=== PATIENT | male | born 1975 | race Caucasian/White ===

== ENCOUNTER 2016-12-08 16:28 | Emergency (ER) | payer BC, MEDICAID ==
[2016-12-08] MEDS ORDERED: Sodium Chloride 0.9% 10 ML Syringe FLUSH PRN (16:42)
[2016-12-08] MEDS ORDERED: Aspirin 81 MG Tab.Chew PO ONE (16:42)
[2016-12-08] MEDS ORDERED: Sodium Chloride 0.9% 2.5 ML Syringe FLUSH PRN (16:42)
--- NOTE | 2016-12-08 16:46 | EDM.PDOC ---
ED HPI GENERAL MEDICAL PROBLEM - General Stated Complaint: CHEST PAIN Time Seen by Provider: 12/08/16 16:29 - History of Present Illness INITIAL COMMENTS - FREE TEXT/NARRATIVE: HISTORY AND PHYSICAL: History of present illness: The patient is a 41-year-old male with no stated cardiac or pulmonary history and does not have a local provider and presents with an episode of chest pain that woke him from sleep at 2:53 AM. The patient states he had a normal day yesterday and ate normally and went to sleep and was sleeping comfortably until he woke with sudden onset of left upper chest pain that did not radiate which he rated as a 10/10. The pain lasted approximately 1 hour and then completely dissipated and it has not returned since. The patient states he took Tylenol. The patient states that the pain was not radiating it was not associated with diaphoresis nausea vomiting or abdominal pain. The patient says he has a history of asthma which is very well controlled and when he woke with the pain he thought he was wheezing so he gave himself a nebulizer which also improved his discomfort. The patient states he was never uses any asthma medications but thought he was wheezing which is why he did that neb. The patient has not had cholesterol or lipid profile checked and has never done a stress test but does smoke a pack of cigarettes a day and states he eats a very "poor diet". He has no significant family history for cardiac disease and has no drug use history. The patient's told him to make sure to tell me that he has had episodes similar to this in the middle the night in the past and he says they have occurred approximately every month for the last 2 years but never to this extreme. He has not sought evaluation from it but says he does wake from sleep with the same pain in the same location but not as strong. The patient also has a history of back pain and back surgery in 2013 but does not take any narcotics for that pain and has no complaints of that today. He otherwise denies any upper respiratory symptoms and currently in the ED has no complaints of chest pain shortness of breath abdominal pain. The patient states he only had the pain for approximately 1 hour and the only reason he came in is because one home this afternoon after work took a nap and woke up and remembered what occurred early this morning and thought he should be evaluated. He also states that his work tasks that he come here as well. Has no recent long travel and no leg pain or swelling. 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 The patient also denies any recent trauma to the chest wall area. Review of systems: As per history of present illness and below otherwise all systems reviewed and negative. Past medical history: As per history of present illness and as reviewed below otherwise noncontributory. Surgical history: As per history of present illness and as reviewed below otherwise noncontributory. Social history: No reported history of drug or alcohol abuse. Family history: As per history of present illness and as reviewed below otherwise noncontributory. Physical exam: Gen.: Well-developed well-nourished man who is nontoxic and speaking easily and moving easily in the ED without distress. HEENT: Atraumatic, normocephalic, pupils reactive, negative for conjunctival pallor or scleral icterus, mucous membranes moist, throat clear, neck supple, nontender, trachea midline. Lungs: Clear to auscultation, breath sounds equal bilaterally, chest nontender. Heart: S1S2, regular, negative for clicks, rubs, or JVD. Abdomen: Soft, nondistended, nontender. Negative for masses or hepatosplenomegaly. Negative for costovertebral tenderness. Pelvis: Stable nontender. Genitourinary: Deferred. Rectal: Deferred. Extremities: Atraumatic, negative for cords or calf pain. Neurovascular unremarkable. No pedal edema or leg asymmetry Neuro: Awake, alert, oriented. Cranial nerves II through XII unremarkable. Cerebellum unremarkable. Motor and sensory unremarkable throughout. Exam nonfocal. Diagnostics: EKG chest x-ray CBC CMP d-dimer troponin When EKG was performed in the ED he had no chest pain Therapeutics: Aspirin Patient continues to have no chest pain and stable vitals. I have discussed with him all testing results and have offered 23 hour admission for serial EKG and cardiac enzymes and he has refused. He understands my concerns and the risk involved and his a competent individual and accepts those risks. He also asked me for work release which I will not give him. In light of the fact that the patient wants to get back to work as soon as possible we have organized a clinic follow-up appointment with Dr. Guy in his clinic tomorrow at 2 PM. 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 He understands that he should return if the chest pain returns or if there are any new symptoms and he is accepting of all risks involved with his decision. Impression: Chest pain rule out ACS, atypical chest pain, refusing admission Definitive disposition and diagnosis as appropriate pending reevaluation and review of above. - Related Data Allergies Allergy/AdvReac Type Severity Reaction Status Date / Time No Known Allergies Allergy Verified 12/08/16 16:44 Home Meds: Home Meds Albuterol [Proventil Neb Soln] 2.5 mg NEB DAILY PRN 12/08/16 [History] Past Medical History Respiratory History: Reports: Asthma - Past Surgical History Musculoskeletal Surgical History: Reports: Other (See Below) Social & Family History - Family History Family Medical History: Noncontributory - Tobacco Use Smoking Status *Q: Never Smoker - Recreational Drug Use Recreational Drug Use: No ED ROS GENERAL - Review of Systems Review Of Systems: ROS reveals no pertinent complaints other than HPI. ED EXAM, GENERAL - Physical Exam Exam: See Below (See dictation) Course - Vital Signs Last Recorded V/S: Last Vital Signs Temp 36.6 C 12/08/16 16:47 Pulse 80 12/08/16 16:47 Resp 19 12/08/16 16:47 BP 146/88 H 12/08/16 16:47 Pulse Ox 94 L 12/08/16 16:47 - Orders/Labs/Meds Orders: Active Orders 24 hr Category Date Time Status Cardiac Monitoring [RC] . DIRECTED Care 12/08/16 16:41 Active EKG Documentation Completion [RC] STAT Care 12/08/16 16:41 Active Oxygen Therapy, ED [RC] ASDIRECTED Care 12/08/16 16:41 Active Pulse Oximetry [RC] ASDIRECTED Care 12/08/16 16:41 Active Chest 1V Frontal [CR] Stat Exams 12/08/16 16:41 Taken Sodium Chloride 0.9% [Saline Flush] Med 12/08/16 16:42 Active 10 ml FLUSH ASDIRECTED PRN Sodium Chloride 0.9% [Saline Flush] Med 12/08/16 16:42 Active 2.5 ml FLUSH ASDIRECTED PRN Saline Lock Insert [OM.PC] Stat [facility] 12/08/16 16:41 Ordered Medication Orders Sodium Chloride (Saline Flush) 10 ml FLUSH ASDIRECTED PRN PRN Reason: Keep Vein Open Last Admin: 12/08/16 16:58 Dose: 10 ml Sodium Chloride (Saline Flush) 2.5 ml FLUSH ASDIRECTED PRN PRN Reason: Keep Vein Open Last Admin: 12/08/16 16:56 Dose: 2.5 ml Labs: Laboratory Tests 12/08/16 12/08/16 12/08/16 Range/Units 16:30 16:30 16:30 WBC 6.81 (4.0-11.0) K/uL RBC 4.90 (4.50-5.90) M/uL Hgb 14.8 (13.0-17.0) g/dL Hct 42.7 (38.0-50.0) % MCV 87.1 (80.0-98.0) fL MCH 30.2 (27.0-32.0) pg MCHC 34.7 (31.0-37.0) g/dL RDW Std Deviation 38.8 (28.0-62.0) fl RDW Coeff of Tashi 12 (11.0-15.0) % Plt Count 301 (150-400) K/uL MPV 10.20 (7.40-12.00) fL Neut % (Auto) 48.3 (48.0-80.0) % Lymph % (Auto) 39.8 (16.0-40.0) % [place] % (Auto) 7.9 (0.0-15.0) % Eos % (Auto) 3.4 (0.0-7.0) % Baso % (Auto) 0.6 (0.0-1.5) % Neut # (Auto) 3.3 (1.4-5.7) K/uL Lymph # (Auto) 2.7 H (0.6-2.4) K/uL [place] # (Auto) 0.5 (0.0-0.8) K/uL Eos # (Auto) 0.2 (0.0-0.7) K/uL Baso # (Auto) 0.0 (0.0-0.1) K/uL Nucleated RBC % 0.0 /100WBC Nucleated RBCs # 0 K/uL D-Dimer, Quantitative 0.21 (0.0-0.52) mg/LFEU Sodium 139 (136-146) mmol/L Potassium 4.2 (3.5-5.1) mmol/L Chloride 108 (98-110) mmol/L Carbon Dioxide 23 (21-31) mmol/L BUN 15 (6.0-23.0) mg/dL Creatinine 1.0 (0.6-1.5) mg/dL Est Cr Clr Drug Dosing 92.72 mL/min Estimated GFR (MDRD) > 60.0 ml/min Glucose 97 (60-110) mg/dL Calcium 9.1 (8.8-10.8) mg/dL Total Bilirubin 0.5 (0.1-1.5) mg/dL AST 34 (5-40) IU/L ALT 60 H (8-54) IU/L Alkaline Phosphatase 94 (40-150) Troponin I (0.0-0.29) NG/ML Total Protein 7.8 (6.0-8.0) g/dL Albumin 4.6 (3.5-5.0) g/dL Globulin 3.2 (2.0-3.5) g/dL Albumin/Globulin Ratio 1.4 (1.3-2.8) 12/08/16 Range/Units 16:30 WBC (4.0-11.0) K/uL RBC (4.50-5.90) M/uL Hgb (13.0-17.0) g/dL Hct (38.0-50.0) % MCV (80.0-98.0) fL MCH (27.0-32.0) pg MCHC (31.0-37.0) g/dL RDW Std Deviation (28.0-62.0) fl RDW Coeff of Tashi (11.0-15.0) % Plt Count (150-400) K/uL MPV (7.40-12.00) fL Neut % (Auto) (48.0-80.0) % Lymph % (Auto) (16.0-40.0) % [place] % (Auto) (0.0-15.0) % Eos % (Auto) (0.0-7.0) % Baso % (Auto) (0.0-1.5) % Neut # (Auto) (1.4-5.7) K/uL Lymph # (Auto) (0.6-2.4) K/uL [place] # (Auto) (0.0-0.8) K/uL Eos # (Auto) (0.0-0.7) K/uL Baso # (Auto) (0.0-0.1) K/uL Nucleated RBC % /100WBC Nucleated RBCs # K/uL D-Dimer, Quantitative (0.0-0.52) mg/LFEU Sodium (136-146) mmol/L Potassium (3.5-5.1) mmol/L Chloride (98-110) mmol/L Carbon Dioxide (21-31) mmol/L BUN (6.0-23.0) mg/dL Creatinine (0.6-1.5) mg/dL Est Cr Clr Drug Dosing mL/min Estimated GFR (MDRD) ml/min Glucose (60-110) mg/dL Calcium (8.8-10.8) mg/dL Total Bilirubin (0.1-1.5) mg/dL AST (5-40) IU/L ALT (8-54) IU/L Alkaline Phosphatase (40-150) Troponin I < 0.10 (0.0-0.29) NG/ML Total Protein (6.0-8.0) g/dL Albumin (3.5-5.0) g/dL Globulin (2.0-3.5) g/dL Albumin/Globulin Ratio (1.3-2.8) Meds: Medications Generic Name Dose Route Start Last Admin Trade Name Freq PRN Reason Stop Dose Admin Sodium Chloride 10 ml 12/08/16 16:42 12/08/16 16:58 Saline Flush FLUSH 10 ml ASDIRECTED PRN Administration Keep Vein Open Sodium Chloride 2.5 ml 12/08/16 16:42 12/08/16 16:56 Saline Flush FLUSH 2.5 ml ASDIRECTED PRN Administration Keep Vein Open Discontinued Medications Generic Name Dose Route Start Last Admin Trade Name Freq PRN Reason Stop Dose Admin Aspirin 324 mg 12/08/16 16:42 12/08/16 16:55 Aspirin PO 12/08/16 16:43 324 mg ONETIME ONE Administration Departure - Departure Time of Disposition: 18:14 Disposition: Home, Self-Care 01 Condition: Good Clinical Impression: Atypical chest pain, Chest pain in adult - Discharge Information Additional Instructions: The following information is given to patients seen in the emergency department who are being discharged to home. This information is to outline your options for follow-up care. We provide all patients seen in our emergency department with a follow-up referral. The need for follow-up, as well as the timing and circumstances, are variable depending upon the specifics of your emergency department visit. If you don't have a primary care physician on staff, we will provide you with a referral. We always advise you to contact your personal physician following an emergency department visit to inform them of the circumstance of the visit and for follow-up with them and/or the need for any referrals to a consulting specialist. The emergency department will also refer you to a specialist when appropriate. This referral assures that you have the opportunity for followup care with a specialist. All of these measure are taken in an effort to provide you with optimal care, which includes your followup. Under all circumstances we always encourage you to contact your private physician who remains a resource for coordinating your care. When calling for followup care, please make the office aware that this follow-up is from your recent emergency room visit. If for any reason you are refused follow-up, please contact the [facility] emergency department at and ask to speak to the emergency department charge nurse. [facility] Primary care- Internal Medicine and Family [address] [id number] Please come to our clinic tomorrow at 1:45 PM to be seen by our inspector final assembly conveyor line Dr. Porter at 2 PM in his clinic. Please go to the lab tomorrow morning when you first wake up and have not eaten anything for 8 hours to have cholesterol and lipid panel done. Please return to ER as needed and as discussed. Do not return to work until you have been seen by the physician in the clinic - My Orders Last 24 Hours: My Active Orders 12/08/16 16:41 Cardiac Monitoring [RC] . DIRECTED EKG Documentation Completion [RC] STAT Oxygen Therapy, ED [RC] ASDIRECTED Pulse Oximetry [RC] ASDIRECTED Chest 1V Frontal [CR] Stat Saline Lock Insert [OM.PC] Stat 12/08/16 16:42 Sodium Chloride 0.9% [Saline Flush] 10 ml FLUSH ASDIRECTED PRN Sodium Chloride 0.9% [Saline Flush] 2.5 ml FLUSH ASDIRECTED PRN - Assessment/Plan Last 24 Hours: My Active Orders 12/08/16 16:41 Cardiac Monitoring [RC] . DIRECTED EKG Documentation Completion [RC] STAT Oxygen Therapy, ED [RC] ASDIRECTED Pulse Oximetry [RC] ASDIRECTED Chest 1V Frontal [CR] Stat Saline Lock Insert [OM.PC] Stat 12/08/16 16:42 Sodium Chloride 0.9% [Saline Flush] 10 ml FLUSH ASDIRECTED PRN Sodium Chloride 0.9% [Saline Flush] 2.5 ml FLUSH ASDIRECTED PRN
[2016-12-08 17:09] LABS: CHLORIDE,CL 108 mmol/L (98-110); SODIUM,NA 139 mmol/L (136-146)
[2016-12-08 18:30] VITALS: BP 120/86
--- NOTE | 2016-12-09 10:24 | CR ---
EXAM DATE: 12/08/16 PATIENT'S AGE: 41 Patient: ZAIRA VELASQUEZ Facility: [place], [place] Site . Site : [id number] Study: XRay Chest [id number]/13/2017 5:18:47 PM Ordering Physician: Petrona Espinoza Final Report: INDICATION: chest pain TECHNIQUE: Chest 1 view. COMPARISON: None. FINDINGS: Cardiovascular and mediastinum: Heart size and vasculature are normal in caliber and appearance. Mediastinum is within normal limits. Lungs and pleural space: Lungs are clear. No sign of infiltrate or mass. No sign of pleural effusion. No pneumothorax. Bones and soft tissues: No significant findings. IMPRESSION: Unremarkable chest. Dictated by: Denins Marrufo MD @ 12/08/2016 17:55:46 (Electronic Signature) Report Signed by Proxy. [facility]ITAL[facility]
== END 2016-12-08 18:30 | disposition home or self-care (01) ==
LOC: MW.ED 16:28
DX: R07.89 Other chest pain (principal); J45.909 Unspecified asthma, uncomplicated; Z79.899 Other long term (current) drug therapy; Z98.890 Other specified postprocedural states
CPT/HCPCS: 71010; 80053; 84484; 85025; 85379; 93005; 99285; A9270; 99283

== ENCOUNTER 2017-02-14 15:08 | Emergency (ER) | payer BC, MEDICAID ==
[2017-02-14] MEDS ORDERED: Albuterol/Ipratropium 3.0-0.5 MG/3 ML Neb Soln NEB ONE (15:16)
[2017-02-14] MEDS ORDERED: methylPREDNISolone Sodium Succinate 125 MG/2 ML SDV IM ONE (15:16)
--- NOTE | 2017-02-14 15:29 | EDM.PDOC ---
ED HPI GENERAL MEDICAL PROBLEM - General Chief Complaint: Respiratory Problem Stated Complaint: HARD TIME BREATHING Time Seen by Provider: 02/14/17 15:10 Source of Information: Reports: Patient History Limitations: Reports: No Limitations - History of Present Illness INITIAL COMMENTS - FREE TEXT/NARRATIVE: History of present illness: 41-year-old male presents with asthma exacerbation. Patient indicates he has a known diagnosis of asthma and is running out of his medicine is secondary to his work pattern finds it difficult to get into his PCP. Review of systems: As per history of present illness and below otherwise all systems reviewed and negative. Past medical history: As per history of present illness and as reviewed below otherwise noncontributory. Surgical history: As per history of present illness and as reviewed below otherwise noncontributory. Social history: No reported history of drug or alcohol abuse. Family history: As per history of present illness and as reviewed below otherwise noncontributory. Physical exam: HEENT: Atraumatic, normocephalic, pupils reactive, negative for conjunctival pallor or scleral icterus, mucous membranes moist, throat clear, neck supple, nontender, trachea midline. Lungs: Poor air movement but otherwise breath sounds equal bilaterally, chest nontender. Heart: S1S2, regular, negative for clicks, rubs, or JVD. Abdomen: Soft, nondistended, nontender. Negative for masses or hepatosplenomegaly. Negative for costovertebral tenderness. Pelvis: Stable nontender. Genitourinary: Deferred. Rectal: Deferred. Extremities: Atraumatic, negative for cords or calf pain. Neurovascular unremarkable. Neuro: Awake, alert, oriented. Cranial nerves II through XII unremarkable. Cerebellum unremarkable. Motor and sensory unremarkable throughout. Exam nonfocal. Diagnostics: [] Therapeutics: [DuoNeb, Solu-Medrol] Impression: [Asthma exacerbation] Plan: [Duo neb medication, rescue inhaler, Singulair, follow-up with PCP] Definitive disposition and diagnosis as appropriate pending reevaluation and review of above. - Related Data Allergies Allergy/AdvReac Type Severity Reaction Status Date / Time No Known Allergies Allergy Verified 02/14/17 15:15 Home Meds: Home Meds Albuterol Sulfate 2.5 mg IH Q6HR PRN #1 box 02/14/17 [Rx] Albuterol Sulfate [Proair Hfa] 2 puff IH Q6HR #1 hfa.aer.ad 02/14/17 [Rx] Inhaler, Assist Devices [Space Chamber Plus] 1 each ASDIRECTED #1 spacer [Rx] Montelukast [Singulair] 10 mg PO BEDTIME #30 tablet 02/14/17 [Rx] methylPREDNISolone [Medrol] 4 mg PO DAILY #21 tab.ds.pk 02/14/17 [Rx] Past Medical History Respiratory History: Reports: Asthma - Infectious Disease History Infectious Disease History: Reports: Chicken Pox - Past Surgical History GI Surgical History: Reports: Hernia, Abdominal Social & Family History - Family History Family Medical History: Noncontributory - Tobacco Use Smoking Status *Q: Current Every Day Smoker Years of Tobacco use: 2 Packs/Tins Daily: 1 - Caffeine Use Caffeine Use: Reports: Coffee, Energy Drinks Caffeine Use Comment: 1cup f coffee/day; 2-3drinks/day - Recreational Drug Use Recreational Drug Use: No ED ROS GENERAL - Review of Systems Review Of Systems: See Below (See history of present illness) ED EXAM, GENERAL - Physical Exam Exam: See Below (See history of present illness) Course - Vital Signs Last Recorded V/S: Last Vital Signs Temp 36.1 C 02/14/17 15:12 Pulse 73 02/14/17 15:12 Resp 20 02/14/17 15:12 BP 141/96 H 02/14/17 15:12 Pulse Ox 98 02/14/17 15:12 - Orders/Labs/Meds Orders: Active Orders 24 hr Category Date Time Status RT Aerosol Therapy [RC] ASDIRECTED Care 02/14/17 15:17 Active Meds: Medications Discontinued Medications Generic Name Dose Route Start Last Admin Trade Name Jessy PRN Reason Stop Dose Admin Albuterol/Ipratropium 3 ml 02/14/17 15:16 02/14/17 15:23 Duoneb 3.0-0.5 Mg/3 Ml NEB 02/14/17 15:17 3 ml ONETIME ONE Administration Methylprednisolone Sodium Succinate 125 mg 02/14/17 15:16 Solu-Medrol IM 02/14/17 15:17 ONETIME ONE Departure - Departure Time of Disposition: 15:43 Disposition: Home, Self-Care 01 Condition: Good Clinical Impression: Exacerbation of asthma - Discharge Information Forms: ED Department Discharge Additional Instructions: The following information is given to patients seen in the emergency department who are being discharged to home. This information is to outline your options for follow-up care. We provide all patients seen in our emergency department with a follow-up referral. The need for follow-up, as well as the timing and circumstances, are variable depending upon the specifics of your emergency department visit. If you don't have a primary care physician on staff, we will provide you with a referral. We always advise you to contact your personal physician following an emergency department visit to inform them of the circumstance of the visit and for follow-up with them and/or the need for any referrals to a consulting specialist. The emergency department will also refer you to a specialist when appropriate. This referral assures that you have the opportunity for follow-up care with a specialist. All of these measure are taken in an effort to provide you with optimal care, which includes your follow-up. Under all circumstances we always encourage you to contact your private physician who remains a resource for coordinating your care. When calling for follow-up care, please make the office aware that this follow-up is from your recent emergency room visit. If for any reason you are refused follow-up, please contact the [facility] Emergency Department at and asked to speak to the emergency department charge nurse. Take medication as directed Follow-up with PCP in 1-2 days Discontinue any [id number] treatment for your asthma as discussed Return to ED as needed as discussed [facility] Primary [facility] [address] [place] [id number] - My Orders Last 24 Hours: My Active Orders 02/14/17 15:17 RT Aerosol Therapy [RC] ASDIRECTED - Assessment/Plan Last 24 Hours: My Active Orders 02/14/17 15:17 RT Aerosol Therapy [RC] ASDIRECTED
[2017-02-14 16:25] VITALS: BP 130/86
== END 2017-02-14 16:20 | disposition home or self-care (01) ==
LOC: MW.ED 15:08
DX: J45.901 Unspecified asthma with (acute) exacerbation (principal); F17.210 Nicotine dependence, cigarettes, uncomplicated; Z79.899 Other long term (current) drug therapy
CPT/HCPCS: 94664; 96372; 99284; J2930; 99283

== ENCOUNTER 2017-09-24 17:22 | Emergency (ER) | payer OTHER, MEDICAID ==
--- NOTE | 2017-09-24 18:02 | EDM.PDOC ---
ED HPI GENERAL MEDICAL PROBLEM - General Chief Complaint: General Stated Complaint: PT HAS FLU SYMPTOMS Time Seen by Provider: 09/24/17 17:36 Source of Information: Reports: Patient History Limitations: Reports: No Limitations - History of Present Illness INITIAL COMMENTS - FREE TEXT/NARRATIVE: HISTORY AND PHYSICAL: History of present illness: Patient is a 41-year-old male who presents to the emergency room today with complaints of sore throat, bilateral ear pain, dry cough and not "feeling well" 4-5 days. He denies any chest pain, shortness of breath, abdominal pain, nausea , vomiting, diarrhea or constipation. He is a smoker. History of asthma and previous pneumonia. Review of systems: As per history of present illness and below otherwise all systems reviewed and negative. Past medical history: As per history of present illness and as reviewed below otherwise noncontributory. Surgical history: As per history of present illness and as reviewed below otherwise noncontributory. Social history: No reported history of drug or alcohol abuse. Family history: As per history of present illness and as reviewed below otherwise noncontributory. Physical exam: General: Well-developed and well-nourished 41-year-old male. Alert and oriented. Nontoxic appearing and in no acute distress. HEENT: Atraumatic, normocephalic, pupils equal and reactive bilaterally, negative for conjunctival pallor or scleral icterus, mucous membranes moist, throat clear without exudate, neck supple, nontender, trachea midline. TMs normal bilaterally. No drooling or trismus noted. No meningeal signs Lungs: Clear to auscultation with diminished bases bilaterally, breath sounds equal bilaterally, chest nontender. Heart: S1S2, regular rate and rhythm without overt murmur Abdomen: Soft, nondistended, nontender. Negative for masses or hepatosplenomegaly. Negative for costovertebral tenderness. Pelvis: Stable nontender. Genitourinary: Deferred. Rectal: Deferred. Skin: Intact, warm, dry. No lesions or rashes noted. Extremities: Atraumatic, moves all extremities per self without difficulty or deficits, negative for cords or calf pain. Neurovascular unremarkable. Neuro: Awake, alert, oriented. Cranial nerves II through XII unremarkable. Cerebellum unremarkable. Motor and sensory unremarkable throughout. Exam nonfocal. Notes: Negative influenza. Chest x-ray shows no infiltration or pneumonia. Due to the patient's history of asthma and current smoker I will treat with azithromycin and pro-air. Encouraged him to follow up with his primary caregiver. Return to the ED as needed he voices understanding and is agreeable to plan of care. Diagnostics: Influenza, chest x-ray Therapeutics: [] Impression: Bronchitis Viral Illness Plan: 1. Please stop smoking. Please take the antibiotic as directed. 2. Pro-air inhaler, one to 2 puffs every 4-6 hours as needed. 3. Rest, drink plenty of fluids to prevent dehydration and Tylenol/ibuprofen as needed for pain management. 4. Follow-up with your primary caregiver in the next 2-3 days. Return to the ED as needed and as discussed. Definitive disposition and diagnosis as appropriate pending reevaluation and review of above. Duration: Day(s): Location: Reports: Head, Chest Generalized Pain Score (Numeric/FACES): 3 - Related Data Allergies Allergy/AdvReac Type Severity Reaction Status Date / Time No Known Allergies Allergy Verified 09/24/17 17:49 Home Meds: Home Meds Buprenorphine HCl [Buprenorphine] 8 mg SL ASDIRECTED 09/24/17 [History] Past Medical History - Past Health History Medical/Surgical History: Denies Medical/Surgical History Respiratory History: Reports: Asthma - Infectious Disease History Infectious Disease History: Reports: Chicken Pox - Past Surgical History GI Surgical History: Reports: Hernia, Abdominal Musculoskeletal Surgical History: Reports: Other (See Below) Social & Family History - Family History Family Medical History: Noncontributory - Tobacco Use Smoking Status *Q: Current Every Day Smoker Years of Tobacco use: 15 Packs/Tins Daily: 0.5 Second Hand Smoke Exposure: No - Caffeine Use Caffeine Use: Reports: Other Caffeine Use Comment: 1cup f coffee/day; 2-3drinks/day - Recreational Drug Use Recreational Drug Use: No ED ROS GENERAL - Review of Systems Review Of Systems: ROS reveals no pertinent complaints other than HPI. ED EXAM, GENERAL - Physical Exam Exam: See Below Course - Vital Signs Last Recorded V/S: Last Vital Signs Temp 98.5 F 09/24/17 18:57 Pulse 82 09/24/17 18:57 Resp 18 09/24/17 18:57 BP 124/82 09/24/17 18:57 Pulse Ox 97 09/24/17 18:57 - Orders/Labs/Meds Orders: Active Orders 24 hr Category Date Time Status Chest 2V [CR] Stat Exams 09/24/17 17:55 Taken Departure - Departure Time of Disposition: 18:42 Disposition: Home, Self-Care 01 Clinical Impression: Bronchitis, Viral illness - Discharge Information Instructions: Viral Illness, Adult, Acute Bronchitis, Adult Referrals: PCP,None [Primary Care Provider] - Forms: ED Department Discharge Additional Instructions: The following information is given to patients seen in the emergency department who are being discharged to home. This information is to outline your options for follow-up care. We provide all patients seen in our emergency department with a follow-up referral. The need for follow-up, as well as the timing and circumstances, are variable depending upon the specifics of your emergency department visit. If you don't have a primary care physician on staff, we will provide you with a referral. We always advise you to contact your personal physician following an emergency department visit to inform them of the circumstance of the visit and for follow-up with them and/or the need for any referrals to a consulting specialist. The emergency department will also refer you to a specialist when appropriate. This referral assures that you have the opportunity for follow-up care with a specialist. All of these measure are taken in an effort to provide you with optimal care, which includes your follow-up. Under all circumstances we always encourage you to contact your private physician who remains a resource for coordinating your care. When calling for follow-up care, please make the office aware that this follow-up is from your recent emergency room visit. If for any reason you are refused follow-up, please contact the Emergency Department at and asked to speak to the emergency department charge nurse. Primary Care [address] [place] [id number] 1. Please stop smoking. Please take the antibiotic as directed. 2. Pro-air inhaler, one to 2 puffs every 4-6 hours as needed. 3. Rest, drink plenty of fluids to prevent dehydration and Tylenol/ibuprofen as needed for pain management. 4. Follow-up with your primary caregiver in the next 2-3 days. Return to the ED as needed and as discussed. - My Orders Last 24 Hours: My Active Orders 09/24/17 17:55 Chest 2V [CR] Stat - Assessment/Plan Last 24 Hours: My Active Orders 09/24/17 17:55 Chest 2V [CR] Stat
[2017-09-24 18:57] VITALS: BP 124/82
--- NOTE | 2017-09-27 10:09 | CR ---
EXAM DATE: 09/24/17 PATIENT'S AGE: 41 Patient: ZAIRA VELASQUEZ Facility: [place], [place] Site . Site : [id number] Study: XRay Chest [id number]/30/2018 6:11:53 PM Ordering Physician: Doctor Camacho Final Report: INDICATION: Cough/flue like symptoms. Pt states hes been sick since last Wednesday. TECHNIQUE: Chest 2 views COMPARISON: None FINDINGS: Cardiovascular and mediastinum: Heart size and vasculature are normal in caliber and appearance. Mediastinum is within normal limits. Lungs and pleural spaces: No focal consolidation. No sign of pleural effusion. No pneumothorax. Bones and soft tissues: No significant findings. IMPRESSION: No acute cardiopulmonary disease. Dictated by Bry Franklin MD @ 09/24/2017 6:47:41 PM Dictated by: Bry Franklin MD @ 09/24/2017 18:47:48 (Electronic Signature) Report Signed by Proxy. [facility]ITAL[facility]
== END 2017-09-24 18:57 | disposition home or self-care (01) ==
LOC: MW.ED 17:22
DX: J40 Bronchitis, not specified as acute or chronic (principal); B34.9 Viral infection, unspecified; F17.210 Nicotine dependence, cigarettes, uncomplicated
CPT/HCPCS: 71046; 71046-26; 87804; 99283

== ENCOUNTER 2018-09-16 13:13 | Emergency (ER) | payer OTHER, MEDICAID ==
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
[2018-09-16 14:39] LABS: CHLORIDE,CL 105 mmol/L (98-107); SODIUM,NA 139 mmol/L (136-148)
[2018-09-16 15:05] VITALS: BP 112/79
== END 2018-09-16 14:58 | disposition home or self-care (01) ==
LOC: MW.ED 13:13
DX: R22.32 Localized swelling, mass and lump, left upper limb (principal); F17.210 Nicotine dependence, cigarettes, uncomplicated
CPT/HCPCS: 36415; 80053; 85025; 99282; 99283

== ENCOUNTER 2018-10-20 02:12 | Emergency (ER) | payer MEDICAID, OTHER ==
[2018-10-20] MEDS ORDERED: Albuterol/Ipratropium 3.0-0.5 MG/3 ML Neb Soln NEB ONE (02:15)
[2018-10-20] MEDS ORDERED: methylPREDNISolone Sodium Succinate 125 MG/2 ML SDV IM ONE (02:15)
--- NOTE | 2018-10-20 02:51 | CR ---
INDICATION: Asthma attack TECHNIQUE: Chest 1 views COMPARISON: Chest x-ray 09/24/2017 FINDINGS: Cardiovascular and mediastinum: Heart size and vasculature are normal in caliber and appearance. Lungs and pleural spaces: Lungs are clear. No sign of infiltrate or mass. No sign of pleural effusion. No pneumothorax. Bones and soft tissues: No significant findings. IMPRESSION: No acute findings and no significant changes from the prior exam. Dictated by Akash Garber MD @ Oct 20 2018 2:47AM Signed by Dr. Akash Garber @ Oct 20 2018 2:48AM
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
[2018-10-20 03:33] VITALS: BP 135/79
== END 2018-10-20 03:25 | disposition home or self-care (01) ==
LOC: MW.ED 02:12
DX: J45.901 Unspecified asthma with (acute) exacerbation (principal); Z79.899 Other long term (current) drug therapy
CPT/HCPCS: 71045; 87804; 94640; 96372; 99285; J2930; 99283; J7620-GY